=== PATIENT | male | born 2000 | race Caucasian/White ===

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

== ENCOUNTER 2018-02-27 09:24 | Inpatient (IN) | payer OTHER ==
[2018-02-27 10:05] LABS: HEMATOCRIT 49.2 % (42.0-52.0); HEMOGLOBIN 16.6 g/dl (13.5-17.5); MEAN CORPUSCULAR HGB CONC 33.7 g/dl (32.0-36.5); MEAN CORPUSCULAR VOLUME 91.8 fl (80.0-96.0); PLATELET COUNT, AUTOMATED 162 10^3/uL (150-450); RED BLOOD COUNT 5.36 10^6/uL (4.30-6.10); RED CELL DISTRIBUTION WIDTH 12.4 % (11.5-14.5); WHITE BLOOD COUNT 5.1 10^3/uL (4.0-10.0)
[2018-02-27 10:21] LABS: AMPHETAMINES LEVEL URINE NEGATIVE (NEGATIVE); BARBITURATES URINE NEGATIVE (NEGATIVE); BENZODIAZEPINES URINE NEGATIVE (NEGATIVE); CANNABINOIDS URINE NEGATIVE (NEGATIVE); COCAINE METABOLITE URINE NEGATIVE (NEGATIVE); METHADONE URINE NEGATIVE (NEGATIVE); OPIATES URINE NEGATIVE (NEGATIVE); PHENCYCLIDINE URINE NEGATIVE (NEGATIVE)
[2018-02-27 10:53] LABS: ACETAMINOPHEN LEVEL < 2.0 UG/ML (10.0-30.0); ALBUMIN 4.4 GM/DL (3.2-5.2); ALBUMIN/GLOBULIN RATIO 1.26 (1.00-1.93); ALKALINE PHOSPHATASE 113 U/L (45-117); ALT/SGPT 25 U/L (12-78); ANION GAP 10 MEQ/L (8-16); AST/SGOT 22 U/L (7-37); BILIRUBIN,DIRECT 0.2 MG/DL (0.0-0.2); BILIRUBIN,TOTAL 0.8 MG/DL (0.2-1.0); BLOOD UREA NITROGEN 12 MG/DL (7-18); CALCIUM LEVEL 9.3 MG/DL (8.5-10.1); CARBON DIOXIDE LEVEL 27 MEQ/L (21-32); CHLORIDE LEVEL 104 MEQ/L (98-107); CREATININE FOR GFR 0.98 MG/DL (0.70-1.30); ETHYL ALCOHOL (ETHANOL) < 0.003 % (0.000-0.010); GLUCOSE, FASTING 75 MG/DL (70-100); POTASSIUM SERUM 3.9 MEQ/L (3.5-5.1); SALICYLATE LEVEL < 1.7 MG/DL (5.0-30.0); SODIUM LEVEL 141 MEQ/L (136-145); TOTAL PROTEIN 7.9 GM/DL (6.4-8.2)
[2018-02-27] MEDS ORDERED: ACETAMINOPHEN TAB 650MG DOSE (2X325MG) PO (15:45)
[2018-02-27] MEDS ORDERED: MAALOX 30 ML SUSP *UDC PO (15:45)
[2018-02-27] MEDS ORDERED: MOM 30ML SUSPENSION UDC PO (15:45)
[2018-02-27] MEDS: traZODone 50 MG TAB PO (21:40)
[2018-02-28] MEDS: NICOTINE 21MG/24HR 1 EA TRANSDERMAL TD (09:10)
[2018-02-28] MEDS: SERTRALINE HCL 50 MG TAB PO (14:49)
[2018-03-01] MEDS: SERTRALINE HCL 50 MG TAB PO (08:19)
[2018-03-01] MEDS: NICOTINE 21MG/24HR 1 EA TRANSDERMAL TD (08:19)
[2018-03-02] MEDS: NICOTINE 21MG/24HR 1 EA TRANSDERMAL TD (08:44)
[2018-03-02] MEDS: SERTRALINE HCL 25 MG TABLET PO (08:44)
[2018-03-02] MEDS: hydrOXYzine 50 MG TAB PO (11:39)
[2018-03-03] MEDS: SERTRALINE HCL 25 MG TABLET PO (09:09)
[2018-03-03] MEDS: NICOTINE 21MG/24HR 1 EA TRANSDERMAL TD (09:09)
[2018-03-03] MEDS: hydrOXYzine 50 MG TAB PO (21:50)
[2018-03-03] MEDS: traZODone 50 MG TAB PO (23:41)
[2018-03-04] MEDS: SERTRALINE HCL 25 MG TABLET PO (09:03)
[2018-03-04] MEDS: NICOTINE 21MG/24HR 1 EA TRANSDERMAL TD (09:03)
[2018-03-04] MEDS: hydrOXYzine 50 MG TAB PO (19:45)
[2018-03-04] MEDS: traZODone 50 MG TAB PO (22:47)
[2018-03-05] MEDS: NICOTINE 21MG/24HR 1 EA TRANSDERMAL TD (09:00)
[2018-03-05] MEDS: SERTRALINE HCL 25 MG TABLET PO (09:20)
== END 2018-03-05 12:55 | disposition home or self-care (01) | DRG 885 ==
LOC: M ED 09:24 → M ED INP 17:31 → M PSY 20:00
DX: F33.2 Major depressive disorder, recurrent severe without psychotic features (principal); F41.1 Generalized anxiety disorder; F17.290 Nicotine dependence, other tobacco product, uncomplicated; Z88.0 Allergy status to penicillin; Z88.8 Allergy status to other drugs, medicaments and biological substances

== ENCOUNTER 2018-08-20 12:53 | Emergency (ER) | payer OTHER ==
[~2018-08-20] VITALS: Ht 172.7 cm; Wt 60.9 kg
[~2018-08-20 12:53] MED LIST: HYDRO50TAB PO; NICO21PAT TD; SERT25TA PO; TRAZO50TA PO
[2018-08-20 13:35] LABS: BASO % 0.3 % (0.0-1.0); EOS % 0.1 % (0.0-3.0); HEMOGLOBIN 17.5 g/dl (13.5-17.5); LYMPH # 0.3 10^3/uL (1.5-6.5); LYMPH % 2.3 % (24.0-44.0); MEAN CORPUSCULAR HEMOGLOBIN 31.2 pg (27.0-33.0); MEAN CORPUSCULAR VOLUME 89.1 fl (80.0-96.0); MONO # 0.8 10^3/uL (0.0-0.8); MONO % 6.1 % (0.0-5.0); NEUTROPHILS # 11.7 10^3/uL (1.8-7.7); NEUTROPHILS % 90.7 % (36.0-66.0); PLATELET COUNT, AUTOMATED 176 10^3/uL (150-450); RED BLOOD COUNT 5.61 10^6/uL (4.30-6.10); WHITE BLOOD COUNT 12.9 10^3/uL (4.0-10.0)
[2018-08-20 14:18] LABS: ALBUMIN 4.4 GM/DL (3.2-5.2); ALT/SGPT 19 U/L (12-78); BILIRUBIN,DIRECT 0.3 MG/DL (0.0-0.2); BILIRUBIN,TOTAL 1.2 MG/DL (0.2-1.0); BLOOD UREA NITROGEN 23 MG/DL (7-18); CALCIUM LEVEL 9.3 MG/DL (8.5-10.1); CARBON DIOXIDE LEVEL 27 MEQ/L (21-32); CHLORIDE LEVEL 105 MEQ/L (98-107); CREATININE FOR GFR 1.15 MG/DL (0.70-1.30); GLUCOSE, FASTING 106 MG/DL (70-100); LIPASE 86 U/L (73-393); POTASSIUM SERUM 3.8 MEQ/L (3.5-5.1); SODIUM LEVEL 140 MEQ/L (136-145); TOTAL PROTEIN 7.6 GM/DL (6.4-8.2)
[2018-08-20] MEDS ORDERED: ONDANSETRON 4MG/2ML VIAL (J2405) IV ONE (15:15)
[2018-08-20] MEDS ORDERED: NS 1,000 ML IV ONE (15:15)
[2018-08-20] MEDS ORDERED: ONDA4TAB6 PO (16:21)
[2018-08-20 16:31] VITALS: BP 108/57
== END 2018-08-20 16:32 | disposition home or self-care (01) ==
LOC: M ED 12:53
DX: K52.9 Noninfective gastroenteritis and colitis, unspecified (principal); Z88.0 Allergy status to penicillin
CPT/HCPCS: 80048; 80076; 81001; 83690; 85025; 96374; 99284; J2405